=== PATIENT | male | born 1950 | race Caucasian/White ===

== ENCOUNTER → 2022-01-09 | Outpatient (CLI) | payer OTHER ==
--- NOTE | 2022-01-09 17:55 | Diagnostic Imaging Report ---
PROCEDURE: CT chest without contrast. TECHNIQUE: Multiple contiguous axial images were obtained through the chest without the use of intravenous contrast. Auto Exposure Controls were utilized during the CT exam to meet ALARA standards for radiation dose reduction. INDICATION:[id number] history of smoking. COMPARISON: None. FINDINGS: Evaluation of the lung oneal demonstrates spiculated mass-type density within the posterior margins of the right apex. Area in question measures 2.4 x 3 cm. There is no prior available for comparison. 5 mm micronodule is also noted within the superior margins of the right middle lobe (image 92, series 5). Background mild centrilobular emphysematous changes are also present, greatest within the upper lungs. There is no large effusion or pneumothorax. Cardiomediastinal structures show normal heart size. There is no large pericardial effusion. No pathologically enlarged or morphologically abnormal adenopathy is seen within the mediastinum, tony, nor axillae. Osseous structures show age-related degenerative changes. No lytic or blastic bony lesions are identified. Included portions of the upper abdomen show bulky pancreatic calcifications suggestive of chronic pancreatitis. No additional acute abnormality is seen. IMPRESSION: 1. Spiculated mass-type density involving the posterior right apex. This is in a position amenable to CT-guided biopsy. Correlation with CT/PET is also advised. 2. Background mild centrilobular emphysematous changes. 3. Additional punctate micronodule within the superior margins of the right middle lobe. Dictated by: Dictated on workstation # [id number]
== END ==
LOC: RAD FS 14:01
PROVIDERS: ATTEND Family Medicine
DX: J43.2 Centrilobular emphysema (principal); R91.1 Solitary pulmonary nodule; Z87.891 Personal history of nicotine dependence
CPT/HCPCS: 71250